=== PATIENT | female | born 1960 | race Caucasian/White ===

== ENCOUNTER → 2018-09-29 | Outpatient (CLI) | payer BC ==
[~2018-09-29] MED LIST: CONCERTA18 MG; PERCOCET 325 MG1 TA2 PO; PROMETRIUM100 MG PO; VALTREX1 GM PO; concerta
== END ==
LOC: MC.RAD 10:20
DX: Z12.31 Encounter for screening mammogram for malignant neoplasm of breast (principal)

== ENCOUNTER → 2022-03-02 | Outpatient (CLI) | payer BC | LOC: MC.RAD 09:00 | DX: Z12.31 Encounter for screening mammogram for malignant neoplasm of breast (principal) ==

== ENCOUNTER → 2023-01-12 | Outpatient (CLI) | payer BC | LOC: COL.LAB 11:26 | DX: M65.841 Other synovitis and tenosynovitis, right hand (principal); G89.29 Other chronic pain; K04.7 Periapical abscess without sinus ==

== ENCOUNTER 2023-11-10 19:24 | Inpatient (IN) | payer BC ==
[~2023-11-10] VITALS: Ht 162.6 cm; Wt 74.7 kg
[~2023-11-10 19:24] MED LIST changes: +FLONASEALLERGY NS; +FOLIC ACID0.8 MG PO; +HYZAAR 50-12.1 UDTAB PO; +MUCINEX 60600 MG/TA1 PO; +PREDNISONE 5MG5 MG PO; +PRILOSEC 20MG20 MG PO
[2023-11-10 20:12] LABS: BASO % 0.3 % (0.0-2.0); EOS % 0.3 % (0.0-4.0); GRAN % 78.2 % (42.2-75.2); LYMPH # 1.3 K/mm3 (1.2-3.4); LYMPH % 14.5 % (20.0-51.0); MEAN CELL VOLUME 90 fl (80.0-100.0); MEAN CORPUSCULAR HEMOGLOBIN 29 pg (27-31); MEAN CORPUSCULAR HGB CONC 33 g/dl (33.0-37.0); MEAN PLATELET VOLUME 9.1 fl (7.4-10.4); MONO # 0.5 K/mm3 (0.1-0.6); MONO % 5.7 % (1.7-9.3); PLATELET COUNT 210 K/mm3 (130-400); RED BLOOD COUNT 4.09 M/mm3 (4.10-5.30); REDCELL DISTRIBUTION WIDTH-CV 13.8 % (11.5-14.5)
[2023-11-10 20:31] LABS: ALBUMIN 2.8 gm/dL (3.4-4.8); BILIRUBIN,TOTAL 0.9 mg/dL (0.2-1.2); CALCIUM 8.9 mg/dL (8.4-10.2); CREATININE, serum 0.63 mg/dL (0.57-1.11); POTASSIUM 3.8 mmol/L (3.5-4.5); TOTAL PROTEIN 6.1 gm/dL (6.2-8.1)
[2023-11-10 20:34] LABS: HEMATOCRIT 36.8 % (37.0-47.0)
[2023-11-10 20:41] LABS: TROPONIN-I 0.054 ng/mL (0.00-0.033)
[2023-11-10 20:43] LABS: COLLECTION METHOD CLEAN CATCH
[2023-11-10] MEDS ORDERED: ATIVAN 0.50.5 MG/TAB PO (22:10)
[2023-11-10] MEDS ORDERED: PERCOCET 325 MG1 TAB PO (22:11)
[2023-11-10] MEDS ORDERED: LASIX 20MG TABL20 MG PO (22:12)
[2023-11-10] MEDS ORDERED: HYZAAR 50-12.1 UDTAB PO (22:12)
[2023-11-10] MEDS ORDERED: PREDNISONE 5MG5 MG PO (22:13)
[2023-11-10 22:24] LABS: URINE APPEARANCE Hazy (CLEAR/HAZY); URINE BLOOD TRACE-INTACT (NEGATIVE); URINE COLOR Yellow (YELLOW); URINE GLUCOSE Negative (NEGATIVE); URINE KETONE 1+ (NEGATIVE); URINE NITRATE Negative (NEGATIVE); URINE PROTEIN(semi-quant) 1+ (NEGATIVE)
[2023-11-10 22:25] LABS: SQUAMOUS EPITHELIAL 0-2 /hpf (0-10); URINE BACTERIA Rare /hpf (NONE SEEN); URINE RBC 0-2 /hpf (0-2)
[2023-11-11] VITALS (10 sets, daily range): BP systolic 96–136; BP diastolic 60–87; PULSE 77–101; TEMP 97.7–98.5
[2023-11-11 00:28] LABS: ARTERIAL BLD GAS O2 SATURATION 93.9 % (92-100); ARTERIAL BLD GAS TCO2 CT 30.6; ARTERIAL BLOOD GAS HCO3 29.3 meq/L (22-26); ARTERIAL BLOOD GAS PCO2 42.5 mmHg (35-45); ARTERIAL BLOOD GAS PO2 69.2 mmHg (80-100); ARTERIAL BLOOD GAS pH 7.46 (7.35-7.45)
--- NOTE | 2023-11-11 01:20 | NUR ---
Recieved report from QUEENIE Marcial at this time.
--- NOTE | 2023-11-11 02:00 | NUR ---
Patient arrived on the floor at this time with belongings and at bedside. Denies any pain at this time. States she is hungry, snack provided. Assessment and med rec complete. Oriented patient and family to room, bed, call light, and phone. Denies any other needs at this time. Call light and personal items in reach. Bed in low position and bed alarm on.
--- NOTE | 2023-11-11 04:59 | NUR ---
Critcal lab notifed to DIGITAL PROJECT MANAGER Vesna of Troponin 0.066.
--- NOTE | 2023-11-11 05:26 | NUR ---
63 yo female admitted for further care and management of acute respiratory failure and a right lower extremity wound with cellulitis. ht 165.1 cm wt 77.4 kg SCr 0.63 with estimated CrCl >60 ml/min half life 10.2 hours Plan: Will give an initial loading dose of vancomycin 1500 mg x1 (19.4 mg/kg); followed by a maintenance regimen of vancomycin 1250 mg q12h to target a goal trough of 10-15 mcg/ml. Will follow patient's renal function, micro data, and vancomycin levels as indicated to assess for any necessary changes to regimen. Thank you for this dosing consult.
--- NOTE | 2023-11-11 06:00 | NUR ---
Patient resting in bed. Rates her pain at an 8/10, PRN pain meds given. Denies any needs at this time. Call light and personal items in reach. Bed in low position and bed alarm on.
--- NOTE | 2023-11-11 08:00 | NUR ---
SHIFT ASSESSMENT COMPLETE. VSS. PATIENT SITTING IN BED WITH SPOUSE AT BEDSIDE. MORNING MEDS GIVEN PER ORDERS. PATEL IN PLACE WITH CLEAR YELLOW URINE DRAINING. PATIENT HAS RT LEG WOUND RED W/ESCHAR. BLE EDEMA +3. PATIENT COMPLAINS OF PAIN 8/10 IN BACK. PAIN MEDS GIVEN PER ORDERS. FALL PRECAUTIONS IN PLACE, CALL LIGHT IN REACH.
[2023-11-11] MEDS ORDERED: METADATECD40 PO (09:39)
[2023-11-11] MEDS ORDERED: HYZAAR 50-12.1 UDTAB PO (09:44)
--- NOTE | 2023-11-11 09:46 | NUR ---
Initial visit; Patient appears to be very ill though thanked Physical Fitness Teacher for coming in to visit her and for keeping her in Physical Fitness Teacher's prayers. Her was also present and thanked Physical Fitness Teacher several times for visiting. Physical Fitness Teacher wished them both well and offered God's blessings.
--- NOTE | 2023-11-11 15:26 | NUR ---
Advertising Internship met with patient to discuss discharge planning. Patient lives in [place] with her , Dre (ph#[phone]) who is at bedside. Patient sees Dr. Zapien for primary care and obtains medications from [facility]. Patient uses a walker for ambulation and advised she will be getting set up with a CPAP. Patient gets assistance from Dre with ADLS. Patient does not have DPOA-HC, but may be interested in completing one. Patient requested follow up tomorrow. Patient plans to return home at time of discharge with her spouse. Discharge Plan: Home
--- NOTE | 2023-11-11 15:30 | NUR ---
CONTACTED DR. UMANA FOR CONSULT FOR RT LEG WOUND.
--- NOTE | 2023-11-11 19:30 | NUR ---
Assessment complete. A&Ox4. Denies nausea. Short of breath with activity. Rating pain 5/10 on pain scale-states she will want her percocet when due but is okay now. Also states she has a headache which she thinks is related to not having any caffeine. Gave coffee per request. Assisted up to bed side commode with two assist. is at bedside. Hi cath with clear yellow urine. Currently on O2@3L/oxymask. TELE reporting SR. Noted to have a large necrotic malodorous wound to right lower leg. Currently not draining. Also noted to have excoriation under breasts. +3 edema to bilat lower ext. Discussed NPO status at 0000. Verbalizes understanding. Call light in reach. Will monitor.
--- NOTE | 2023-11-11 21:29 | NUR ---
Patient rating pain 8/52-jqaeiczyvsh-ehtcoqja given per dr order.
--- NOTE | 2023-11-11 22:51 | NUR ---
Pt doing well at this time. Pt was given pain medication as I came on shift, pt reports that this did help with bringing her level of pain down. Pt spouse is at bedside and is staying the night. Call light within reach, will continue to monitor
[2023-11-12] VITALS (19 sets, daily range): BP systolic 109–153; BP diastolic 63–97; PULSE 71–104; TEMP 97.2–98.7
--- NOTE | 2023-11-12 00:16 | NUR ---
RT IN AT [address] PT ON CPAP. PT STATES THAT "THE MASK IS TOO TIGHT" AND REFUSES TO WEAR CPAP FOR THE NIGHT. WILL ENCOURAGE PT TO WEAR TOMORROW NIGHT. PT PLACED BACK ON 2L OXYMASK.
[2023-11-12 06:29] LABS: BASO % 0.2 % (0.0-2.0); EOS % 0.4 % (0.0-4.0); GRAN # 3.8 K/mm3 (1.4-6.5); GRAN % 75.5 % (42.2-75.2); HEMOGLOBIN 10.5 g/dl (12.5-16.0); LYMPH # 0.8 K/mm3 (1.2-3.4); MEAN CELL VOLUME 89 fl (80.0-100.0); MEAN CORPUSCULAR HEMOGLOBIN 29 pg (27-31); MEAN CORPUSCULAR HGB CONC 33 g/dl (33.0-37.0); MEAN PLATELET VOLUME 9.2 fl (7.4-10.4); MONO # 0.4 K/mm3 (0.1-0.6); MONO % 7.5 % (1.7-9.3); PLATELET COUNT 180 K/mm3 (130-400); RED BLOOD COUNT 3.57 M/mm3 (4.10-5.30); REDCELL DISTRIBUTION WIDTH-CV 13.6 % (11.5-14.5)
[2023-11-12 06:31] LABS: HEMATOCRIT 31.9 % (37.0-47.0)
[2023-11-12 06:42] LABS: CALCIUM 8.4 mg/dL (8.4-10.2); CREATININE, serum 0.51 mg/dL (0.57-1.11); POTASSIUM 3.7 mmol/L (3.5-4.5)
--- NOTE | 2023-11-12 07:30 | NUR ---
SHIFT ASSESSMENT COMPLETE. VSS. PATIENT SITTING UP IN BED W/ AT BEDSIDE. PATIENT NPO FOR DEBRIDMENT TODAY AND COMPLAINING OF HUNGER. ADVISED PATIENT THAT SHE HAS TO BE NPO PRIOR TO THE DEBRIDMENT. PATIENT EX[RESSED UNDERSTANDING. PATIENT ALSO COMPLAINING OF PAIN 9/10 IN BACK, PAIN MEDS ADMINISTERED ORDERED. ALL MORNING MEDS GIVEN ORDERED. PATIENT REPOSITIONED. CALL LIGHT IN REACH.
--- NOTE | 2023-11-12 15:07 | NUR ---
[facility] spoke with Hospitalist who advised patient is not ready for discharge at this time and that he put in an IPR screen.
--- NOTE | 2023-11-12 15:45 | NUR ---
PATIENT OFF FLOOR FOR SURICAL DEBRIDMENT.
--- NOTE | 2023-11-12 18:21 | NUR ---
PATIENT BACK ON FLOOR. A&OX4. PATIENT HAS NO REQUEST OR COMPLAINTS AT THIS TIME. CALL LIGHT IN REACH.
--- NOTE | 2023-11-12 18:24 | NUR ---
PATIENT EATING O2 86 ON ROOM AIR. INSTRUCTED PATIENT TO PLACE OXYMASK ON EVERY FEW BITES. O2 95 ON 3L AFTER A FEW DEEP BREATHS PATIENT EXPRESSED UNDERSTANDING.CALL LIGHT IN PLACE
--- NOTE | 2023-11-12 22:36 | NUR ---
Patient assessed around 2034. Alert and oriented, and able to make needs known. Reports chronic pain to back. Given PRN Percocet around 2144. Peripheral INT to left AC/upper arm. Received IV ABX per orders. Patient reports SOB at rest without oxygen on. On oxygen at 3.5 L/min via OM. LS CTA in upper lobes, diminished in lower. Encouraged to use IS. HRR. Telemetry in place, normal sinus. BSAx4. Abdomen distended. No BM since Wednesday. Asked if she would like a stools softener, and declined at this time. Is passing gas. Indwelling phillips catheter patent, clear yellow urine. 2+ edema BLE. Dressing to RLE CDI from I&D. Elevated on pillow. remains at bedside. Voices no further questions, needs, or concerns at this time. In bed with call light within reach. High fall risk precautions in place. Bed alarm on.
[2023-11-13] VITALS (12 sets, daily range): BP systolic 135–151; BP diastolic 75–88; PULSE 90–98; TEMP 97.1–98
--- NOTE | 2023-11-13 06:10 | NUR ---
Patient received IV ABX during the night per orders. Patient received PRN Oxycodone every 4 hours during the night as requested for chronic back pain. Continues on oxygen at 2 L/min via NC. Did sit up on side of bed and stand at side of bed for short time with assistance during the night. Voices no questions, needs, or concerns at this time. In bed with call light within reach.
--- NOTE | 2023-11-13 20:00 | NUR ---
UPON SHIFT ASSESSMENT, TARYN WAS AWAKE AND AXO X 4 WITH BEDSIDE. HER RLE DRESSING IS CDI WRAPPED IN GAUZE WITH AASHISH. SHE DENIES CHEST PAIN, HOWEVER, DYSPNEA IS NOTED WHILE ANSWERING ASSESSMENT QUESTIONS. PATEL IS DRAINING CLEAR, PALE YELLOW URINE. TARYN C/O 6/10 BACK AND RIB PAIN R/T TO INJURIES FROM FALL. VSS ARE WNL, TELE IS NS. CALL LIGHT WITHIN REACH.
[2023-11-14] VITALS (11 sets, daily range): BP systolic 136–163; BP diastolic 77–94; PULSE 75–97; TEMP 97.5–97.9
--- NOTE | 2023-11-14 01:00 | NUR ---
phillips care provided
--- NOTE | 2023-11-14 02:37 | NUR ---
AT THE BEGINNNING OF SHIFT RT TALKED TO PT ABOUT THE BENEFITS OF WEARING CPAP. PT AGREEABLE TO CALL RT WHEN SHE IS READY TO GO ON CPAP. RT IN AT 0230. PT STILL REFUSING CPAP STATING "I JUST WANT TO SLEEP".
--- NOTE | 2023-11-14 04:00 | NUR ---
DTI NOTED ON RT BUTTOCK. PLACED MEPIPLEX AND PROVIDED EDUCATION ON THE NEED TO SHIFT WEIGHT INDEPENDENTLY EVERY 2HRS. ASSISSTED PATIENT TO ROLL ON LT SIDE AND PLACED PILLOW UNDERNEATH HIP. REPOSITIONED AND ELEVATED LOWER EXTREMITIES AND PLACED INTERRY IN PANIS.
--- NOTE | 2023-11-14 04:59 | NUR ---
BELLA C/O OF RIB, BACK AND LE PAIN THROUGHOUT THE NIGHT AND PRN PERCOCET WAS GIVEN WHEN ALLOWABLE. SHE WAS ABLE TO SLEEP FOR A FEW HOURS, IS EASY TO AROUSE FROM SLEEP AND REMAINS AXO X 4 AND PLEASANT. FULL EXPANSION OF RIBCAGE AND INSPIROMETER USE WAS NOT OBSERVED. OXYMASK REMAINS AT 2L. HAS LEFT BEDSIDE TO RETURN HOME FOR REST. VA ARE WNL. TELE IS NS. CALL LIGHT WITHIN REACH
--- NOTE | 2023-11-14 09:30 | NUR ---
PT SITTING IN BED UPON ENTERING, AT BEDSIDE. ASSESSMENT DONE, MEDS GIVEN PER ORDER. PT REPORTS LOW BACK PAIN, THIS NURSE NOTIFIED PT THAT SHE HAS TO WAIT UNTIL 1000 TO GET PRN AND OFFERED TYLENOL, PT REFUSED. PT ON 2L OXYMASK. PATEL DRAINING CLEAR YELLOW URINE DEPENDENTLY WITHOUT ISSUES. BILATERAL LOWER EXTREMITY +2 PITTING EDEMA. RIGHT LOWER EXTREMITY WRAPPED BY ORTHO, GAUZE AND AASHISH WRAP. CMS CHECKS NORMAL. RIGHT LEG ELEVATED ON PILLOW. PT DENIES NEEDS AT THIS TIME. BED IN LOWEST POSITION, CALL LIGHT IN REACH, BED ALARM ON
--- NOTE | 2023-11-14 12:00 | NUR ---
THIS NURSE NOTIFIED PT OF ORDERED STOOL SOFTENERS. PT REPORTS LAST BOWEL MOVEMENT WAS YESTERDAY. PT REPORTS HAVING REGULAR BOWEL MOVEMENTS DUE TO HER DIET. PT STATES THAT HER BROUGHT HER THE FOOD ITEMS LIKE YOGURT AND BELVITA BARS THAT HAS HELPED HER HAVE DAILY BOWEL MOVEMENTS. PT DENIES COLACE AND MIRALAX AT THIS TIME. THIS NURSE NOTIFIED PT THAT IF SHE DOESNT HAVE A BOWEL MOMEMENT TODAY THOSE MEDICATIONS WILL BE AVAILABLE.
--- NOTE | 2023-11-14 17:52 | NUR ---
PT TRANSFERRED TO CHAIR STANDBY. PT TOLERATED WELL. LEGS ELEVATED AT PT DENIES NEEDS AT THIS TIME
--- NOTE | 2023-11-14 18:17 | NUR ---
PT STATES THAT HER IS GOING TO GET HER DINNER AND TELLS THIS NURSE THAT SHE WONT BE ORDERING, CAFETERIA AWARE
--- NOTE | 2023-11-14 19:12 | NUR ---
REPORT GIVEN TO QUEENIE MILLER
[2023-11-15] VITALS (10 sets, daily range): BP systolic 131–158; BP diastolic 84–92; PULSE 80–97; TEMP 97.3–98
--- NOTE | 2023-11-15 02:29 | NUR ---
PT STILL REFUSING CPAP.
[2023-11-15 06:35] LABS: HEMOGLOBIN 12.1 g/dl (12.5-16.0); MEAN CELL VOLUME 88 fl (80.0-100.0); MEAN CORPUSCULAR HEMOGLOBIN 29 pg (27-31); MEAN CORPUSCULAR HGB CONC 33 g/dl (33.0-37.0); MEAN PLATELET VOLUME 8.7 fl (7.4-10.4); PLATELET COUNT 189 K/mm3 (130-400); RED BLOOD COUNT 4.16 M/mm3 (4.10-5.30); REDCELL DISTRIBUTION WIDTH-CV 13.4 % (11.5-14.5)
[2023-11-15 06:40] LABS: HEMATOCRIT 36.6 % (37.0-47.0)
[2023-11-15 06:57] LABS: C-REACTIVE PROTEIN 0.68 mg/dL (0.00-0.50); CALCIUM 9.1 mg/dL (8.4-10.2); CREATININE, serum 0.67 mg/dL (0.57-1.11); MAGNESIUM 1.9 mg/dL (1.6-2.6); POTASSIUM 3.8 mmol/L (3.5-4.5)
[2023-11-15 07:04] LABS: BAND 2 % (0-10); HYPOCHROMIA 1+; LYMPHOCYTE 21 % (20.0-51.0); NEUTROPHILS 71 % (42.0-75.2); PLATELET ESTIMATE NORMAL (NORMAL)
--- NOTE | 2023-11-15 08:30 | NUR ---
PT SITTING IN CHAIR UPON ENTERING, AT BEDSIDE. ASSESSMENT DONE, MEDS GIVEN. PT REFUSED COLACE AND MIRALAX THIS AM. THIS NURSE MENTIONED THAT PT REFUSED THE DAY BEFORE AND WAS IMPACTED AND PT REFUSED STATING THAT SHE HAS HER OWN REGIMEN WITH HER DIET. PT REPORTS SLIGHTLY IMPROVED BACK AND RIB PAIN AT THIS TIME. PT ON 2L OXYMASK AND PATEL DRAINING DEPENDENTLY WITHOUT ISSUES. PT DENIES NEEDS AND REMINDING THIS NURSE THAT SHE WILL NEED HER PERCOCET ON THE 4TH HOUR, PT REFUSING TYLENOL AT THIS TIME.
--- NOTE | 2023-11-15 22:24 | NUR ---
Patient called requesting pain medications. Rating pain 9/10 on pain scale to right lower ext and generalized aches. Percocet given per dr order.
[2023-11-16] VITALS (12 sets, daily range): BP systolic 147–159; BP diastolic 69–96; PULSE 87–105; TEMP 97.4–97.9
--- NOTE | 2023-11-16 00:18 | NUR ---
patient sitting on edge of bed, alert and oriented x4, at bedside. pt denies chest pain and reports feeling short of breath on exertion. IVs in RH and LW are patent, sites are clean dry and intact. bruising on bilateral hands/upper extremities, BLE +1 edema, closed callous on ball of left foot, heels dry and cracked, RLE/calf wound wrapped with gauze and vonnie bandage after debridement on 11/12, dressing clean dry and intact. 2229- Vesna notified of redness in pt right eye per pt report "i was crying and rubbed it but accidentally scrated it", eye drops given per order. pt has no further needs, questions, or concerns at this time. fall precautions in place, call light within reach. will continue to monitor.
--- NOTE | 2023-11-16 07:13 | NUR ---
THIS NURSE AT BEDSIDE TO DISCONNECT ABX. PT IS TEARFUL AND WHEN ASKED STATES THAT ITS DUE TO PAIN. PT GOT PERCOCET APPROX 20MINS AGO.
--- NOTE | 2023-11-16 10:20 | NUR ---
PT SITTING IN CHAIR UPON ENTERING, AT BEDSIDE. ASSESSMENT DONE, MEDS GIVEN. PT REFUSING COLACE AND MIRALAX. PT REPORTING BACK AND RIB PAIN AND GIVEN PRN PERCOCET. OXYMASK SITTING IN PTS LAP. PT SUPPOSED TO BE ON 2L OXYMASK BUT FORGETS TO PUT IT BACK ON, PT REMINDED OF THIS. INT IN RIGHT HAND ANF LEFT HAND FLUSH WELL WITHOUT COMPLICATIONS. ZOSYN STARTED IN LEFT HAND. PTS RIGHT EYE IS BLOODY. PT UNSURE HOW THIS HAPPENED BUT THINKS SHE SCRATCHED HER EYE OVERNIGHT, EYE DROPS GIVEN. DRESSING TO RIGHT CALF REMOVED. SMALL AMOUNTS OF DRIED DRAINAGE NOTED. GAUZE SOAKED AND PLACED ON TOP OF DRESSING TO HELP REMOVED DRIED DRESSING. PT NOTIFIED THAT IT WILL HAVE TO SOAK FOR A WHILE AND VERBALIZED UNDERSTANDING. LEGS ELEVATED IN RECLINER AND PT DENIES NEEDS AT THIS TIME.
--- NOTE | 2023-11-16 11:00 | NUR ---
DR UMANA CALLED AND NOTIFIED THAT WOUND CARE HASNT BEEN AROUND TO SEE PT YET DUE TO BEING WEDNESDAYS ONLY AND THAT THERE ARE NO ORDERS IN FOR DRESSING CHANGES. DR UMANA STATES THAT HE WOULD LIKE A WET TO DRY DRESSING ORDERED FOR PT.
--- NOTE | 2023-11-16 13:11 | NUR ---
DRESSING TO RIGHT CALF STILL SOAKING. NEW GAUZE SOAKED WITH STERILE WATER APPLIED TO WOUNDS, COVERED WITH ABD PAD AND WRAPPED WITH AASHISH. PT IN RECLINER AND NOTIFIED THAT AIVS HERE TO START PICC AND SHE NEEDS AT BE IN THE BED. AIVS AWARE THAT PT IS UNABLE TO LAY FLAT DUE TO CHRONIC PAIN
--- NOTE | 2023-11-16 14:20 | NUR ---
PT GIVEN PERCOCET PER ORDER. PTS WET TO DRY RIGHT CALF DRESSING COMPLETE. 4X4 GAUZE, ABD PAIN, KERLIX, AASHISH WRAP USED. PT HAS 2 OPEN WOUNDS TO RIGHT CALF WITH REDNESS BORDERING BOTH. NO WARMTH NOTED. SCATTERED REDDENED AREAS WITH SOME SLOUGH NOTED IN WOUND. PT DENIES NEEDS AT THIS TIME
--- NOTE | 2023-11-16 16:00 | NUR ---
public health social worker met with Lydia Mcgrath, IPR director. They are considering patient for IPR services but are continuing to review. SW will continue to follow.
--- NOTE | 2023-11-16 20:00 | NUR ---
UPON SHIFT ASSESSMENT, BELLA WAS UP IN BED WITH A FRIEND VISITING BEDSIDE SIDE. SHE WAS CONVERSING WITHOUT HER OXYMASK ON AND NO SOA OR INCREASED WOB NOTED. SJE DENIES CHESTPAIN AND RLE IS WRAPPED IN KERLIX AND AASHISH-CDI. VS WNL AND TELE IS NS. CALL LIGHT WITHIN REACH.
[2023-11-17] VITALS (12 sets, daily range): BP systolic 122–151; BP diastolic 78–86; PULSE 94–107; TEMP 97.6–98.4
--- NOTE | 2023-11-17 07:36 | NUR ---
THROUGHOUT THE NIGHT TARYN HAD NO NEW EMERGENT STATUS CHANGES. SHE REQUIRED 2 DOSES OF PRN PERCOCET TO ADDRESS RIB Fx AND VERTEBRAE PAIN. SHE HAD A SOLID MODERATE BROWN STOOL. VS REMAIN WNL AND LT LE WET-TO-DRY DRESSING CDI. SHE DENIES ANY NEEDS AT THIS TIME. CALL LIGHT WITHIN REACH.
--- NOTE | 2023-11-17 08:10 | NUR ---
PATIENT MOVED SELF TO CHAIR BY WINDOW. SPO2 93% ON 3LPM VIA OXYMASK, BREATH SOUNDS DIMINISHED THROUGHOUT, HR 105(IN PAIN).
--- NOTE | 2023-11-17 09:00 | NUR ---
SHIFT ASSESSMENT COMPLETE. VSS. PATIENT UP IN BED REQUESTING PAIN MEDS AND FEELING EMOTIONAL THIS AM. PATIENT REPORTS PAIN 8/10. PAIN MEDS AND ALL MORNING MEDS GIVEN PER ORDERS. PATIENT USING 2L O2 OXY MASK NEEDED, O2 STATS 95% DURING ASSESSMENT. DRESSING TO RIGHT LOWER LEG CDI. PATIENT HAS PICC TO RIGHT UPPER ARM CDI W/ ZOSYEN RUNNING 25ML/HR. PATIENT TOLERATING WELL. PATIENT HAS NO OTHER REQUEST OR COMPLAINTS AT THIS TIME. FALL PRECAUTIONS IN PLACE AND CALL LIGHT IN REACH.
--- NOTE | 2023-11-17 09:45 | NUR ---
Follow-up visit; Patient greeted Mid Teacher and eventually talked about trying to get better. Mid Teacher wished her well and offered God's blessings. Clover thanked Mid Teacher for stopping.
--- NOTE | 2023-11-17 21:00 | NUR ---
Patient resting in bed with family at bedside. Rates her pain at 9/10, PRN pain meds given. Denies any needs at this time. Assessment complete. PICC in right upper arm infusing with no complicaitions. Call light and personal items in reach. Bed in low position and bed alarm on.
[2023-11-18] VITALS (7 sets, daily range): BP systolic 125–150; BP diastolic 83–94; PULSE 93–98; TEMP 97.7–98.1
--- NOTE | 2023-11-18 06:30 | NUR ---
Patient in bed with family at bedside. Patient rates her pain a 10/10 and upset her pain medication is late. Pain med was given within 5 minutes of the 4 hour juan ramon. Passed on to dayshift that she does not take her pain med as needed and takes it scheduled and has for the past 13 years. No other complaints over night. Call light and personal items in reach. Bed in low position and bed alarm on.
--- NOTE | 2023-11-18 08:35 | NUR ---
phillips catheter removed, patient tolerated well 100 ml of urine in phillips bag.
[2023-11-18] MEDS ORDERED: DESENEX TP (09:12)
[2023-11-18] MEDS ORDERED: PROAIR HFA0.09 MG/AC IH (09:14)
[2023-11-18] MEDS ORDERED: TYLENOL 325MG325 MG PO (09:15)
[2023-11-18] MEDS ORDERED: PERCOCET 325 MG1 TAB PO (09:17)
[2023-11-18] MEDS ORDERED: AMOXICILLIN 8751 TAB PO (09:18)
[2023-11-18] MEDS ORDERED: CIPRO 500MG TA500 MG PO (09:18)
[2023-11-18] MEDS ORDERED: ASPIRIN E.C. 8181 MG PO (09:20)
--- NOTE | 2023-11-18 10:07 | NUR ---
SHIFT ASSESSMENT COMPLETE. PATIENT UP TO CHAIR WITH AT BEDSIDE. ALL MORNING MEDS GIVEN ORDERED. PATIENT HAS NO REQUEST OR COMPLAINTS AT THIS TIME. CALL LIGHT IN REACH.
--- NOTE | 2023-11-18 16:46 | NUR ---
farmworker diversified crops was notified patient would like to return home with home health. Patient will also need oxygen. LORI met with patient and her regarding home health services. LORI provided the Medicare.gov list of options for home health agencies. LORI expressed she would get an order for her oxygen and have it delivered. LORI returned later and patient and chose [facility]. LORI faxed referral to [facility]. LORI faxed oxygen order to [facility]. LORI contacted Humberto with [facility] whom expressed patient would have a copay if she has not met her deductible. Patient will need to meet her deductible then she would owe 20% of the bill until her out of pocket max is met. LORI notified the patient and she was okay with this. Humberto expressed they could accept this patient. LORI was notified [facility] did not receive referral. LORI refaxed it. LORI was notified [facility] did not receive referral. LORI requested a secure email, LORI secure emailed the referral. Discharge Plan: Home with Home Health
== END 2023-11-18 16:31 | disposition home or self-care (01) | DRG 570 ==
LOC: COL.ER 19:24 → MEDICAL 11-11 00:17
PROVIDERS: Internal Medicine; Nurse Practitioner Family; Nurse Practitioner Primary Care; ADMIT Internal Medicine
PROC: 0JBN0ZZ Excision of Right Lower Leg Subcutaneous Tissue and Fascia, Open Approach (ICD-10-PCS; principal; 2023-11-11)
PROC: 02HV33Z Insertion of Infusion Device into Superior Vena Cava, Percutaneous Approach (ICD-10-PCS; 2023-11-11)
DX: L03.115 Cellulitis of right lower limb (principal); I21.A1 Myocardial infarction type 2; J96.01 Acute respiratory failure with hypoxia; S32.019A Unspecified fracture of first lumbar vertebra, initial encounter for closed fracture; S22.059A Unspecified fracture of T5-T6 vertebra, initial encounter for closed fracture; S22.079A Unspecified fracture of T9-T10 vertebra, initial encounter for closed fracture; S22.089A Unspecified fracture of T11-T12 vertebra, initial encounter for closed fracture; S22.32XA Fracture of one rib, left side, initial encounter for closed fracture; J98.11 Atelectasis; G47.30 Sleep apnea, unspecified; Z11.52 Encounter for screening for COVID-19; I10 Essential (primary) hypertension; R33.9 Retention of urine, unspecified; M06.9 Rheumatoid arthritis, unspecified; D64.9 Anemia, unspecified; B37.9 Candidiasis, unspecified; G89.29 Other chronic pain
CPT/HCPCS: A4314; A9284; C1751; J0290; J0696; J1100; J1650; J2371; J2405; J2543; J2704; J3010; J3370; J7050; J7120; J7512; Q3014; Q9967

== ENCOUNTER 2023-12-16 05:56 | Emergency (ER) | payer BC ==
[~2023-12-16 05:56] MED LIST changes: +AMOXICILLIN 8751 TAB PO; +ASPIRIN E.C. 8181 MG PO; +ATIVAN 0.50.5 MG/TAB PO; +CIPRO 500MG TA500 MG PO; +DESENEX TP; +LASIX 20MG TABL20 MG PO; +METADATECD40 PO; +PERCOCET 325 MG1 TAB PO; +PROAIR HFA0.09 MG/AC IH; +TYLENOL 325MG325 MG PO
[2023-12-16 06:06] VITALS: BP 85/59; TEMP 97.4
[2023-12-16] MEDS ORDERED: Albuterol/Ipratropium 3 MG-0.5 MG/3 ML Neb Soln IH ONE (06:30)
[2023-12-16] MEDS ORDERED: NS 1,000 ML IV ONE (06:30)
[2023-12-16 06:51] LABS: BASO % 0.6 % (0.0-2.0); EOS # 0.1 K/mm3 (0.0-0.7); EOS % 1.4 % (0.0-4.0); GRAN # 4.8 K/mm3 (1.4-6.5); GRAN % 75.1 % (42.2-75.2); HEMOGLOBIN 12.3 g/dl (12.5-16.0); LYMPH # 0.9 K/mm3 (1.2-3.4); LYMPH % 13.7 % (20.0-51.0); MEAN CELL VOLUME 84 fl (80.0-100.0); MEAN CORPUSCULAR HEMOGLOBIN 28 pg (27-31); MEAN CORPUSCULAR HGB CONC 33 g/dl (33.0-37.0); MEAN PLATELET VOLUME 8.9 fl (7.4-10.4); MONO # 0.5 K/mm3 (0.1-0.6); MONO % 8.3 % (1.7-9.3); PLATELET COUNT 226 K/mm3 (130-400); REDCELL DISTRIBUTION WIDTH-CV 14.9 % (11.5-14.5)
[2023-12-16 06:53] LABS: HEMATOCRIT 36.8 % (37.0-47.0)
[2023-12-16 07:00] LABS: INR 1.2 (0.8-3.0); PROTHROMBIN TIME 12.8 SECONDS (9.7-12.8)
[2023-12-16 07:05] LABS: COLLECTION METHOD IN
[2023-12-16 07:05] LABS: ALBUMIN 3.2 gm/dL (3.4-4.8); BILIRUBIN,TOTAL 0.7 mg/dL (0.2-1.2); C-REACTIVE PROTEIN 5.49 mg/dL (0.00-0.50); CALCIUM 9.5 mg/dL (8.4-10.2); CREATININE, serum 2.29 mg/dL (0.57-1.11); TOTAL PROTEIN 6.8 gm/dL (6.2-8.1)
[2023-12-16 07:08] LABS: ARTERIAL BLD GAS TCO2 CT 32.3; ARTERIAL BLOOD GAS BASE EXCESS 6.8 (-2-2); ARTERIAL BLOOD GAS PCO2 42.8 mmHg (35-45); ARTERIAL BLOOD GAS PO2 79.8 mmHg (80-100); ARTERIAL BLOOD GAS pH 7.48 (7.35-7.45)
[2023-12-16 07:13] LABS: TROPONIN-I 0.099 ng/mL (0.00-0.033)
[2023-12-16 07:33] LABS: SQUAMOUS EPITHELIAL 0-2 /hpf (0-10); URINE APPEARANCE Clear (CLEAR/HAZY); URINE BLOOD Negative (NEGATIVE); URINE COLOR Yellow (YELLOW); URINE GLUCOSE Negative (NEGATIVE); URINE KETONE 1+ (NEGATIVE); URINE NITRATE Negative (NEGATIVE); URINE PROTEIN(semi-quant) 1+ (NEGATIVE); URINE RBC 0-2 /hpf (0-2); URINE UROBILINOGEN 0.2 E.U/dL (0.2-1.0)
[2023-12-16 07:34] LABS: URINE BACTERIA Rare /hpf (NONE SEEN)
[2023-12-16 08:13] VITALS: PULSE 92
[2023-12-20] MEDS ORDERED: PLAVIX 75MG TAB75 MG PO (16:23)
== END 2023-12-16 08:16 | disposition left against medical advice (07) ==
LOC: COL.ER 05:56
PROVIDERS: Emergency Medicine
DX: N19 Unspecified kidney failure (principal); E86.0 Dehydration; R09.02 Hypoxemia
CPT/HCPCS: J7030